=== PATIENT | female | born 1990 | race Caucasian/White ===

== ENCOUNTER 2016-10-06 18:33 | Emergency (ER) | payer OTHER ==
[~2016-10-06] VITALS: Ht 160 cm; Wt 52.6 kg
[2016-10-06 18:41] VITALS: BP 106/68
--- NOTE | 2016-10-06 19:44 | ED INFLUENZA/URI COMPLAINT ---
History of Present Illness General Chief Complaint: Upper Respiratory Sx/Fever Stated Complaint: HEAD AND SINUS PRESSURE,FEVER Source: patient Exam Limitations: no limitations Vital Signs & Intake/Output Vital Signs & Intake/Output Vital Signs Date Time Temp Pulse Resp B/P Pulse O2 O2 Flow FiO2 Ox Delivery Rate 10/06 1841 98.6 89 20 106/68 99 Room Air Allergies Coded Allergies: NO KNOWN ALLERGIES (10/06/16) Reconcile Medications Amoxicillin/Potassium Clav (Augmentin 875-125 Tablet) 875 MG-125 MG TABLET 1 TAB PO BID SINUSITIS... X 10 DAYS START ON SUNDAY IF NOT FEELING BETTER. Ibuprofen 800 MG TABLET 1 TAB PO TID PRN PAIN, FEVER Triage Note: TRIAGE: PT TO ER C/C URI S/S ONSET YESTERDAY. REPORTS PRODUCTIVE COUGH WITH YELLOW PHLEGM, HEAD AND SINUS PRESSURE. Triage Nurses Notes Reviewed? yes Onset: Gradual Duration: day(s):, waxing and waning Timing: recent history Severity: moderate Prior Episodes/Possible Cause: no prior episodes Modifying Factors: Improves With: medication, rest. Associated Symptoms: cough, muscle aches, nasal congestion, nasal drainage, sinus infection, sore throat : No Patient currently breastfeeds: No HPI: 26-year-old woman in prior good health presents with sinus congestion and myalgia, low-grade temperature, sore throat, dry cough. She notes that she quit smoking 2 weeks ago. She has no chest pain shortness of breath fever chills wheezing. She notes that her cough is not productive of significant phlegm. She is otherwise well. Past History Travel History Traveled to [place] past 21 day No Medical History Any Pertinent Medical History? see below for history Neurological: NONE EENT: NONE Cardiovascular: NONE Respiratory: NONE Gastrointestinal: NONE Hepatic: NONE Renal: NONE Musculoskeletal: NONE Psychiatric: NONE Endocrine: NONE Blood Disorders: NONE Cancer(s): NONE WIRE TRANSFER CLERK/Reproductive: NONE Surgical History Surgical History: none Psychosocial History What is your primary language Divehi Tobacco Use: Quit <30 days ago ETOH Use: occasional use Illicit Drug Use: denies illicit drug use Family History Hx Contributory? No Review of Systems Review of Systems Constitutional: Reports: no symptoms. EENTM: Reports: no symptoms. Respiratory: Reports: no symptoms. Cardiovascular: Reports: no symptoms. GI: Reports: no symptoms. Genitourinary: Reports: no symptoms. Musculoskeletal: Reports: no symptoms. Skin: Reports: no symptoms. Neurological/Psychological: Reports: no symptoms. Hematologic/Endocrine: Reports: no symptoms. Immunologic/Allergic: Reports: no symptoms. All Other Systems: Reviewed and Negative Physical Exam Physical Exam General Appearance: well developed/nourished, mild distress Head: atraumatic, normal appearance Eyes: Bilateral: normal appearance. Ears, Nose, Throat: mild nasal turbinate congestion. Mild tenderness with palpation on the maxillary sinuses. Neck: normal inspection, supple, full range of motion Respiratory: normal breath sounds, chest non-tender, no respiratory distress, quiet respiration, lungs clear Cardiovascular: regular rate/rhythm Gastrointestinal: normal bowel sounds, soft, non-tender, no organomegaly Back: normal inspection Extremities: normal inspection Neurologic/Psych: no motor/sensory deficits, awake, alert, oriented x 3 Skin: intact, normal color, warm/dry Core Measures Severe Sepsis Present: No Septic Shock Present: No Progress Differential Diagnosis: otitis, pharyngitis, sinusitis Plan of Care: Patient likely has a viral sinusitis. I discussed with her taking ibuprofen and aspirin. I did give a wait and see prescription for Augmentin with instructions to take in 2 days if not feeling better or develops fever. Initial ED EKG: none Departure Departure Disposition: HOME OR SELF CARE Condition: Stable Clinical Impression Primary Impression: Sinusitis Referrals: PATIENT HAS NO PRIMARY CARE DR (PCP/Family) Departure Forms: Customer Survey General Discharge Information Prescriptions: Current Visit Scripts Amoxicillin/Potassium Clav (Augmentin 875-125 Tablet) 1 TAB PO BID #20 TAB START ON SUNDAY IF NOT FEELING BETTER. Ibuprofen 1 TAB PO TID PRN PAIN, FEVER #30 TAB
[2016-10-06] MEDS ORDERED: IBUPROFEN800 M1 PO (19:45)
[2016-10-06] MEDS ORDERED: AUGMENTIN 875-1 EACH PO (19:45)
== END 2016-10-06 19:52 ==
LOC: ERH 18:33
DX: J32.9 Chronic sinusitis, unspecified (principal); Z87.891 Personal history of nicotine dependence